=== PATIENT | male | born 1960 | race African-American/Black ===

== ENCOUNTER 2021-10-19 13:05 | Observation (INO) ==
[2021-10-19 14:12] LABS: Basophils % 0.3 %; Eosinophils # 0.2 K/mcL (0.0-0.6); Eosinophils % 1.2 %; Hematocrit 47.2 % (37.5-50.1); Hemoglobin 15.4 g/dL (12.9-16.9); Immature Granulocytes % 0.5 % (0-4); Lymphocytes # 1.6 K/mcL (0.6-4.6); Lymphocytes % 11.6 %; Mean Corpuscular HGB Conc 32.6 g/dL (31.6-35.5); Mean Corpuscular Hemoglobin 30.1 pg (28.0-33.3); Mean Corpuscular Volume 92.4 fL (83.0-100.0); Mean Platelet Volume 10.5 fL (9.4-12.4); Monocytes # 0.9 K/mcL (0.0-1.3); Monocytes % 6.1 %; Neutrophils # 11.4 K/mcL (1.6-8.9); Platelet Count 255 K/mcL (140-400); Red Blood Count 5.11 M/mcL (4.19-5.50); Red Cell Distribution Width 13.7 % (11.5-14.5); Segmented Neutrophils % 80.3 %; White Blood Count 14.2 K/mcL (4.3-11.1)
[2021-10-19] MEDS ORDERED: Aspirin 325 MG TABLET PO ONE (14:16)
[2021-10-19 14:43] LABS: BUN/Creatinine Ratio 13 (6-26); Blood Urea Nitrogen 14 mg/dL (8-23); Calcium 9.2 mg/dL (8.6-10.3); Carbon Dioxide 27 mEq/L (23-29); Chloride 104 mEq/L (98-107); Glucose 114 mg/dL (70-105); Osmolality,Calculated 287 (280-300); Potassium 3.7 mEq/L (3.5-5.1); Sodium 138 mEq/L (136-145); Troponin I < 0.03 ng/mL (< 0.04); eGFR For African Americans > 60 (> 60); eGFR For Non-African Americans > 60 (> 60)
[2021-10-19] MEDS ORDERED: Iopamidol - 370 500 ML MLS IVP ONE (15:25)
[2021-10-19] MEDS ORDERED: Melatonin 3 MG TABLET PO PRN (17:43)
[2021-10-19] MEDS ORDERED: Naloxone 0.4 MG/ML INJ IVP PRN (17:43)
[2021-10-19] MEDS ORDERED: Acetaminophen 325 MG TABLET PO PRN (17:43)
[2021-10-19] MEDS ORDERED: Ondansetron ODT 4 MG TAB.RAPDIS SL PRN (17:43)
[2021-10-19] MEDS ORDERED: Perflutren Lipid Microsphere 1.3 ML in 0.9 % Sodium Chloride 8.7 ML IVP PRN (17:50)
[2021-10-19] MEDS: *HR* Heparin 5,000 UNIT/ML VIAL SQ SCH (18:48)
[2021-10-19] MEDS ORDERED: Azithromycin 250 MG TABLET PO SCH (21:00)
[2021-10-19] MEDS: Furosemide 20 MG TABLET PO SCH (21:12)
[2021-10-19] MEDS: lisinopriL 10 MG TABLET PO SCH (21:13)
[2021-10-19 22:31] LABS: Adenovirus Not Detected (Not Detect); Bordetella Pertussis Not Detected (Not Detect); Chlamydophila pneumoniae Not Detected (Not Detect); Coronavirus 229E Not Detected (Not Detect); Coronavirus HKU1 Not Detected (Not Detect); Coronavirus NL63 Not Detected (Not Detect); Coronavirus OC43 Not Detected (Not Detect); Human Metapneumovirus Not Detected (Not Detect); Human Rhinovirus/Enterovirus Not Detected (Not Detect); Influenza A Subtype 2009 H1 Not Detected (Not Detect); Influenza B Not Detected (Not Detect); Mycoplasma pneumoniae Not Detected (Not Detect); Parainfluenza Virus 1 Not Detected (Not Detect); Parainfluenza Virus 2 Not Detected (Not Detect); Parainfluenza Virus 3 Not Detected (Not Detect); Parainfluenza Virus 4 Not Detected (Not Detect); Respiratory Syncytial Virus Not Detected (Not Detect); SARS-CoV-2 Not Detected (Not Detect)
[2021-10-20 03:33] LABS: Basophils % 0.4 %; Eosinophils # 0.2 K/mcL (0.0-0.6); Hematocrit 47.4 % (37.5-50.1); Hemoglobin 15.7 g/dL (12.9-16.9); Immature Granulocytes % 0.3 % (0-4); Lymphocytes % 18.3 %; Mean Corpuscular HGB Conc 33.1 g/dL (31.6-35.5); Mean Corpuscular Hemoglobin 30.3 pg (28.0-33.3); Mean Corpuscular Volume 91.3 fL (83.0-100.0); Mean Platelet Volume 10.6 fL (9.4-12.4); Monocytes % 8.7 %; Neutrophils # 7.7 K/mcL (1.6-8.9); Platelet Count 253 K/mcL (140-400); Red Blood Count 5.19 M/mcL (4.19-5.50); Red Cell Distribution Width 13.9 % (11.5-14.5); Segmented Neutrophils % 70.3 %
[2021-10-20 03:56] LABS: Troponin I 0.04 ng/mL (< 0.04)
[2021-10-20 04:17] LABS: BUN/Creatinine Ratio 12 (6-26); Blood Urea Nitrogen 14 mg/dL (8-23); Calcium 9.3 mg/dL (8.6-10.3); Carbon Dioxide 22 mEq/L (23-29); Chloride 100 mEq/L (98-107); Chol/HDL Ratio 8.5 (0-4.9); Cholesterol 271 mg/dL (< 200); Glucose 116 mg/dL (70-105); HDL Cholesterol 32 mg/dL (40-59); LDL Cholesterol,Calculated 198 mg/dL (< 100); Magnesium 2.1 mg/dL (1.6-2.6); Osmolality,Calculated 285 (280-300); Phosphorous 3.8 mg/dL (2.7-4.5); Potassium 3.8 mEq/L (3.5-5.1); Sodium 137 mEq/L (136-145); Triglycerides 205 mg/dL (< 150); eGFR For African Americans > 60 (> 60); eGFR For Non-African Americans > 60 (> 60)
[2021-10-20 04:24] LABS: Estimated Average Glucose 143 mg/dl; Hemoglobin A1C 6.6 %
[2021-10-20] MEDS: *HR* Heparin 5,000 UNIT/ML VIAL SQ SCH (05:00)
[2021-10-20] MEDS: Furosemide 20 MG TABLET PO SCH (08:51)
[2021-10-20] MEDS: lisinopriL 10 MG TABLET PO SCH (08:51)
[2021-10-20] MEDS ORDERED: Aspirin 81 MG TAB.CHEW PO SCH (09:00)
[2021-10-20] MEDS ORDERED: SULFUR HEXAFLUORIDE MICROSPHR 25 MG VIAL IVP ONE (10:08)
[2021-10-20 12:35] VITALS: BP 163/79; PULSE 72; TEMP 97.8; O2SAT 95
[2021-10-20] MEDS ORDERED: amLODIPine 5 MG TABLET PO SCH (13:00)
[2021-10-20] MEDS ORDERED: *HR* Heparin 5,000 UNIT/ML VIAL SQ SCH (14:00)
== END 2021-10-20 15:01 | disposition home or self-care (01) ==
LOC: EMEROOARM 13:05 → 2ANU 13:05 → SUATTDRO 17:28 → 2ANU 18:51
PROVIDERS: ADMIT Family Medicine; ATTEND Internal Medicine